=== PATIENT | female | born 1970 | race Caucasian/White ===

== ENCOUNTER → 2016-07-01 | Outpatient (CLI) | payer OTHER | END | disposition home or self-care (01) | LOC: CFH 08:16 | PROVIDERS: ATTEND Family Medicine | DX: Z12.31 Encounter for screening mammogram for malignant neoplasm of breast (principal) | CPT/HCPCS: G0202 ==

== ENCOUNTER → 2016-07-13 | Outpatient (CLI) | payer OTHER | END | disposition home or self-care (01) | LOC: CFH 07:50 | PROVIDERS: ATTEND Family Medicine | DX: R92.2 Inconclusive mammogram (principal) | CPT/HCPCS: G0206 ==

== ENCOUNTER → 2017-11-07 | Outpatient (CLI) | payer OTHER | END | disposition home or self-care (01) | LOC: CFH 08:36 | PROVIDERS: ATTEND Family Medicine | DX: Z12.31 Encounter for screening mammogram for malignant neoplasm of breast (principal) | CPT/HCPCS: 77063; 77067 ==

== ENCOUNTER → 2019-01-24 | Outpatient (CLI) | payer OTHER | END | disposition home or self-care (01) | LOC: CFH 07:46 | PROVIDERS: ATTEND Family Medicine | DX: Z12.31 Encounter for screening mammogram for malignant neoplasm of breast (principal) | CPT/HCPCS: 76641; 77063; 77067 ==

== ENCOUNTER 2020-03-12 09:11 | Outpatient (CLI) | payer OTHER | END 2020-03-12 23:59 | disposition home or self-care (01) | LOC: CFH 09:11 | PROVIDERS: ATTEND Family Medicine | DX: Z12.31 Encounter for screening mammogram for malignant neoplasm of breast (principal); Z12.39 Encounter for other screening for malignant neoplasm of breast; N60.01 Solitary cyst of right breast; M19.071 Primary osteoarthritis, right ankle and foot; M25.774 Osteophyte, right foot | CPT/HCPCS: 76641; 77063; 77067 ==

== ENCOUNTER 2020-05-08 06:16 | Day surgery (SDC) | payer OTHER ==
[~2020-05-08] VITALS: Ht 165.1 cm; Wt 68.0 kg
[~2020-05-08 06:16] MED LIST: LORA10TA75 PO
[2020-05-08 06:29] VITALS: BP 134/93
[2020-05-08] MEDS ORDERED: LACTATED RINGERS 1,000 ML IV SCH (06:30)
[2020-05-08] MEDS ORDERED: CHLORHEXIDINE 15 ML UDC MM ONE (06:30)
[2020-05-08] MEDS ORDERED: EPINEPHRINE 1 MG/ML, 1ML ONE (06:33)
[2020-05-08] MEDS ORDERED: BUPIVACAINE/PF 0.25% ONE (06:33)
[2020-05-08] MEDS ORDERED: BUPIVACAINE/PF 0.5% ONE (06:33)
[2020-05-08] MEDS ORDERED: BACITRACIN 50,000 UNIT ONE (06:34)
[2020-05-08] MEDS ORDERED: MIDAZOLAM 1 MG/ML, 2ML ONE (06:36)
[2020-05-08] MEDS ORDERED: FENTANYL PF 250 MCG/5ML ONE (06:37)
[2020-05-08] MEDS ORDERED: LIDOCAINE/PF 1%, 30ML ONE (06:38)
[2020-05-08] MEDS ORDERED: PROMETHAZINE 25 MG/ML, 1ML IVPush PRN (07:00)
[2020-05-08] MEDS ORDERED: ACETAMINOPHEN 325 MG TABLET PO PRN (07:00)
[2020-05-08] MEDS ORDERED: LABETALOL 5MG/ML, 20ML IV PRN (07:00)
[2020-05-08] MEDS ORDERED: FENTANYL PF 100 MCG/2ML IV PRN (07:00)
[2020-05-08] MEDS ORDERED: MEPERIDINE/PF 25MG/0.5ML IVPush PRN (07:00)
[2020-05-08] MEDS ORDERED: OXYcodone 5 MG/5 ML ORAL.SOL UDC PO PRN (07:00)
[2020-05-08] MEDS ORDERED: hydrALAzine 20 MG/ML, 1ML IV PRN (07:00)
[2020-05-08] MEDS ORDERED: PROPOFOL 10 MG/ML, 20ML ONE (07:00)
[2020-05-08] MEDS ORDERED: DEXAMETHASONE 4 MG/ML, 5ML ONE (07:00)
[2020-05-08] MEDS ORDERED: HYDROmorphone 1 MG/ML, 1ML INJ IVPush PRN (07:00)
[2020-05-08] MEDS ORDERED: ONDANSETRON 2MG/ML, 2ML IVPush PRN (07:00)
[2020-05-08 07:05] LABS: HCG UR SG 1.028 (1.003-1.030)
[2020-05-08] MEDS ORDERED: CEFAZOLIN 1,000 MG ONE (07:33)
[2020-05-08] MEDS ORDERED: ONDANSETRON 2MG/ML, 2ML ONE (08:09)
[2020-05-08] MEDS ORDERED: ROCURONIUM 10MG/ML,5ML ONE (08:53)
== END 2020-05-08 10:15 | disposition home or self-care (01) ==
LOC: OUT 06:16
PROVIDERS: ATTEND Podiatrist
DX: M20.21 Hallux rigidus, right foot (principal); M89.8X7 Other specified disorders of bone, ankle and foot; J45.909 Unspecified asthma, uncomplicated; Z20.822 Contact with and (suspected) exposure to COVID-19; Z79.899 Other long term (current) drug therapy
CPT/HCPCS: 28288; 28291; 81025; C1713; C1776; J0690; J1100; J2250; J2405; J2704; J3010; J7120; U0003; J0171

== ENCOUNTER → 2020-05-25 | Outpatient (CLI) | payer OTHER ==
[~2020-05-25] MED LIST changes: +OMNIPAQUE 350 MG/ML, 100ML BOTTLE ONE
== END | disposition home or self-care (01) ==
LOC: CFH 09:11
PROVIDERS: ATTEND Family Medicine
DX: D25.9 Leiomyoma of uterus, unspecified (principal); K63.5 Polyp of colon; Z12.11 Encounter for screening for malignant neoplasm of colon
CPT/HCPCS: 74177; Q9967